=== PATIENT | female | born 1980 ===

== ENCOUNTER 2017-09-26 21:07 | Emergency (ER) | payer BC ==
[2017-09-26 21:30] VITALS: RESP 16; TEMP 98.9
--- NOTE | 2017-09-26 22:29 | ED PDOC ---
HPI: Abdomen Time Seen by Provider: 09/26/17 22:20 Chief Complaint (Nursing): Abdominal Pain Chief Complaint (Provider): abdominal pain History Per: Patient History/Exam Limitations: no limitations Onset/Duration Of Symptoms: Days (1 week), Waxing/Waning Current Symptoms Are (Timing): Still Present Location Of Pain/Discomfort: LLQ Additional Complaint(s): 37 y/o female presents for evaluation of left lower abdominal pain x 1 week. Denies fever, nausea/vomiting, chest pain, changes in bowel movements, urinary symptoms, vaginal bleeding/discharge. Patient states she is two weeks late for her period which is unusual, has had negative tests at home. Past Medical History Reviewed: Historical Data, Nursing Documentation, Vital Signs Vital Signs: Last Vital Signs Temp 98.9 F 09/26/17 21:27 Pulse 77 09/26/17 21:27 Resp 16 09/26/17 21:27 BP 124/76 09/26/17 21:27 Pulse Ox 100 09/26/17 22:30 - Medical History PMH: No Chronic Diseases - Surgical History Surgical History: No Surg Hx - Family History Family History: States: No Known Family Hx - Allergies Allergies/Adverse Reactions: Allergies Allergy/AdvReac Type Severity Reaction Status Date / Time Penicillins Allergy RASH Verified 09/26/17 21:27 Review of Systems ROS Statement: Except As Marked, All Systems Reviewed And Found Negative Genitourinary Female: Positive for: Pelvic Pain Physical Exam - Reviewed Nursing Documentation Reviewed: Yes Vital Signs Reviewed: Yes - Physical Exam Appears: Positive for: Well, Non-toxic, No Acute Distress Head Exam: Positive for: ATRAUMATIC, NORMAL INSPECTION, NORMOCEPHALIC Skin: Positive for: Normal Color Eye Exam: Positive for: Normal appearance ENT: Positive for: Normal ENT Inspection Cardiovascular/Chest: Positive for: Regular Rate, Rhythm Respiratory: Positive for: Normal Breath Sounds Gastrointestinal/Abdominal: Positive for: Bowel Sounds, Soft, Tenderness (left pelvic tenderness). Negative for: Distended, Guarding, Rebound Back: Positive for: Normal Inspection. Negative for: L CVA Tenderness, R CVA Tenderness Extremity: Positive for: Normal ROM Neurologic/Psych: Positive for: Alert, Oriented - Laboratory Results Result Diagrams: 09/26/17 22:57 09/26/17 22:57 - ECG O2 Sat by Pulse Oximetry: 100 - Progress ED Course And Treament: labs, urine, IV toradol EXAM: US Pelvis, Transvaginal EXAM DATE/TIME: 09/26/2017 10:26 PM CLINICAL HISTORY: 37 years old, female; Pain; Pelvic pain; Additional info: Left pelvic pain TECHNIQUE: Real-time transvaginal pelvic ultrasound (complete) with image documentation. Transvaginal imaging was used for better evaluation of the endometrium and adnexa. COMPARISON: No relevant prior studies available. FINDINGS: The uterus measures 9 x 4 x 5 cm and is normal. Incidentally noted are nabothian cysts in the cervix. The endometrium measures 9 mm. The right ovary measures 3 x 3 x 3 cm. The left ovary measures 2 x 2 x 2 cm. There is a 1.9 cm simple appearing cyst in the right ovary. The left ovary is normal. Doppler flow is demonstrated to both ovaries. There is no significant free fluid. IMPRESSION: Right ovarian cyst. On re-eval, patient states pain improved. Patient educated on findings, discharged with instructions to follow up [employer] E[employer] Manager 2-3 days. Return precautions given. Disposition - Clinical Impression Clinical Impression: Pelvic pain, Right ovarian cyst - Patient ED Disposition Is Patient to be Admitted: No Counseled Patient/Family Regarding: Studies Performed, Diagnosis, Need For Followup - Disposition Disposition: Routine/Home Disposition Time: 02:46 Condition: IMPROVED Instructions: Acute Pelvic Pain, Ovarian Cysts Forms: [employer] ([place])
[2017-09-26 23:02] LABS: BASO # 0.1 K/uL (0.0-0.2); BASO % 0.6 % (0.0-2.0); EOS # 0.1 K/uL (0.0-0.7); EOS % 0.8 % (0.0-4.0); HEMOGLOBIN 12.6 g/dL (12.0-16.0); LYMPH # 3.9 K/uL (1.0-4.3); LYMPH % 32.3 % (20.0-40.0); MEAN CELL VOLUME 84.6 fl (81.0-99.0); MEAN CORPUSCULAR HEMOGLOBIN 27.5 pg (27.0-31.0); MEAN CORPUSCULAR HGB CONC 32.5 g/dL (33.0-37.0); MEAN PLATELET VOLUME 7.3 fl (7.2-11.7); MONO # 0.9 K/uL (0.0-0.8); MONO % 7.5 % (0.0-10.0); NEUT # 7.2 K/uL (1.8-7.0); NEUT % 58.8 % (50.0-75.0); NRBC % 0.1 % (0.0-0.0); RBC 4.57 Mil/uL (3.80-5.20); RED CELL DISTRIBUTION WIDTH 15.6 % (11.5-14.5); WHITE BLOOD COUNT 12.2 K/uL (4.8-10.8)
[2017-09-26 23:04] LABS: SQUAMOUS EPITHIAL 1 /hpf (0-5); URINE BACTERIA RARE (<OCC); URINE BILIRUBIN NEGATIVE (NEGATIVE); URINE BLOOD MODERATE (NEGATIVE); URINE CLARITY SLIGHTY-CLOUDY (Clear); URINE COLOR YELLOW (YELLOW); URINE GLUCOSE (UA) NEG (Normal); URINE LEUKOCYTE ESTERASE NEG Leu/uL (Negative); URINE PROTEIN NEGATIVE (NEGATIVE); URINE UROBILINOGEN 0.2-1.0 mg/dL (0.2-1.0)
[2017-09-26 23:11] LABS: ALBUMIN 3.7 g/dL (3.5-5.0); ALT/SGPT 60 U/L (9-52); AST/SGOT 43 U/L (14-36); BLOOD UREA NITROGEN 12 mg/dl (7-17); CALCIUM 9.2 mg/dL (8.4-10.2); GFR AFRICAN-AMERICAN > 60; GFR NON-AFRICAN AMERICAN > 60
--- NOTE | 2017-09-27 02:36 | US ---
EXAM: US Pelvis, Transvaginal EXAM DATE/TIME: 09/26/2017 10:26 PM CLINICAL HISTORY: 37 years old, female; Pain; Pelvic pain; Additional info: Left pelvic pain TECHNIQUE: Real-time transvaginal pelvic ultrasound (complete) with image documentation. Transvaginal imaging was used for better evaluation of the endometrium and adnexa. COMPARISON: No relevant prior studies available. FINDINGS: The uterus measures 9 x 4 x 5 cm and is normal. Incidentally noted are nabothian cysts in the cervix. The endometrium measures 9 mm. The right ovary measures 3 x 3 x 3 cm. The left ovary measures 2 x 2 x 2 cm. There is a 1.9 cm simple appearing cyst in the right ovary. The left ovary is normal. Doppler flow is demonstrated to both ovaries. There is no significant free fluid. IMPRESSION: Right ovarian cyst.
[2017-09-27 03:00] VITALS: BP 134/69; PULSE 63; O2SAT 98
== END 2017-09-27 03:01 | disposition home or self-care (01) ==
LOC: H.ER 21:07
DX: R10.2 Pelvic and perineal pain (principal); N83.201 Unspecified ovarian cyst, right side; Z88.0 Allergy status to penicillin
CPT/HCPCS: 76830; 80053; 81003; 81025; 84702; 85025; 87086; 96374; 99283; J1885